=== PATIENT | male | born 1925 | race Caucasian/White ===

== ENCOUNTER 2016-06-20 09:06 | Day surgery (SDC) | payer MEDICARE, OTHER ==
[2006-02-23 18:40] VITALS: BP 107/63
[~2016-06-20] VITALS: Ht 172.7 cm; Wt 103.2 kg
[~2016-06-20 09:06] MED LIST: ACIPHEX20 MG PO; BETAPACE AF120 MG PO; COUMADIN 1MG1 MG/TAB PO; COUMADIN 2MG2 MG/TAB PO; COUMADIN 3MG3 MG/TAB PO; COUMADIN 6MG6 MG/TAB PO; DEPAKOTE500 MG PO; DOXYCYCLINE 10100 MG PO; FENTANYL; FISH OIL CONC1000 MG PO; FLAGYL500 MG PO; FLEXERIL 1010 MG/TAB PO; GLUCOTROL 5M5 MG/TAB PO; K-DUR 2020 MEQ PO; LASIX 40MG TABL40 MG PO; LIPITOR 40MG TA40 MG PO; LIPITOR20 MG PO; LISINOPRIL10 MG PO; LOPID 600M600 MG/TAB PO; LORTAB 5/500 501 TAB PO; NORCO 325 MG-51 TAB PO; OMNICEF 300MG300 MG PO; PACERONE200 MG PO; PERCOCET 325 MG1 TA2 PO; PREDNISONE20 MG PO; PRILOSEC 20MG20 MG PO; RAPAFLO8 MG PO; RYTARY1 CE2 PO; SENOKOT S 50 MG1 TAB PO; STOOL SOFTENER100 M2 PO; SYNTHROID 0.0.025 MG PO; ULTRAM 50MG TAB50 MG PO; UROXATRAL10 M1 PO; VENTOLIN0.09 MG IH; ZITHROMAX 250M250 MG PO; ZOFRAN ODT4 MG PO
[2016-06-20] MEDS ORDERED: SINEMET 25/101 UDTAB PO (09:43)
[2016-06-20 09:48] VITALS: BP 124/55; PULSE 90; TEMP 97.8
[2016-06-20 09:50] LABS: INR 1.4 (0.8-3.0); PROTHROMBIN TIME 16.2 SECONDS (9.7-12.8)
[2016-06-20 11:00] VITALS: BP 111/56; PULSE 71; TEMP 97.4
[2016-06-20 11:15] VITALS: BP 123/80; PULSE 71
[2016-06-20 11:30] VITALS: BP 129/74; PULSE 68
[2016-06-20 12:06] VITALS: BP 114/67; PULSE 70
== END 2016-06-20 11:45 | disposition home or self-care (01) ==
LOC: SDCO 09:06
PROVIDERS: Internal Medicine Pulmonary Disease
DX: R06.02 Shortness of breath (principal); R05 Cough; R91.8 Other nonspecific abnormal finding of lung field; E11.9 Type 2 diabetes mellitus without complications; G47.33 Obstructive sleep apnea (adult) (pediatric); I51.9 Heart disease, unspecified; G47.52 REM sleep behavior disorder; Z79.01 Long term (current) use of anticoagulants; Z79.899 Other long term (current) drug therapy; Z79.84 Long term (current) use of oral hypoglycemic drugs
CPT/HCPCS: J2704; J7120

== ENCOUNTER → 2016-07-29 | Outpatient (CLI) | payer MEDICARE, OTHER ==
[~2016-07-29] MED LIST changes: +ASPIRIN 81M81 MG/TA2 PO; +COLACE 100100 MG/CAP PO; +COMTAN 200MG T200 MG PO; +COUMADIN 5MG5 MG/TAB PO; +FLONASE NASAL S16 GM NS; +SILVADEN TP; +SINEMET 25/101 UDTAB PO; +SINEMET CR 50 M1 TER PO
== END ==
LOC: COL.RAD 12:38
DX: M25.551 Pain in right hip (principal); M16.11 Unilateral primary osteoarthritis, right hip
CPT/HCPCS: J3301; Q9967

== ENCOUNTER 2016-09-23 10:46 | Inpatient (IN) | payer MEDICARE, OTHER ==
[~2016-09-23] VITALS: Ht 172.7 cm; Wt 109.5 kg
[~2016-09-23 10:46] MED LIST changes: -ASPIRIN 81M81 MG/TA2 PO; -COLACE 100100 MG/CAP PO; -COMTAN 200MG T200 MG PO; -COUMADIN 5MG5 MG/TAB PO; -FLONASE NASAL S16 GM NS; -SILVADEN TP; -SINEMET CR 50 M1 TER PO
[2016-09-23] MEDS ORDERED: COLACE 100100 MG/CAP PO (13:54)
[2016-09-23] MEDS ORDERED: FLONASE NASAL S16 GM NS (13:54)
[2016-09-23] MEDS ORDERED: COMTAN 200MG T200 MG PO (13:55)
[2016-09-23 15:52] VITALS: BP 110/51; PULSE 70; TEMP 97.2
[2016-09-24 03:59] VITALS: BP 124/57; PULSE 70; TEMP 97.7
[2016-09-24 12:10] LABS: INR 2.1 (0.8-3.0); PROTHROMBIN TIME 24.2 SECONDS (9.7-12.8)
[2016-09-24 16:40] VITALS: BP 128/68; PULSE 73; TEMP 97.9
[2016-09-25 06:34] VITALS: BP 111/46; PULSE 72; TEMP 97.6
[2016-09-25 09:12] LABS: CREATININE, serum 0.92 mg/dL (0.66-1.25)
[2016-09-25 10:13] LABS: INR 2.4 (0.8-3.0); PROTHROMBIN TIME 27.4 SECONDS (9.7-12.8)
[2016-09-25 17:30] VITALS: BP 109/47; PULSE 67; TEMP 97.7
[2016-09-26 04:58] VITALS: BP 124/58; PULSE 70; TEMP 98
[2016-09-26 07:35] LABS: BASO # 0.1 (0.0-0.2); BASO % 0.9 % (0.0-2.0); EOS # 0.4 (0.0-0.7); EOS % 3.7 % (0-4.0); GRAN # 7.4 (1.4-6.5); GRAN % 77.3 % (42.2-75.2); HEMATOCRIT 45.3 % (42.0-52.0); HEMOGLOBIN 14.2 g/dl (13.5-18.0); MEAN CELL VOLUME 96 fl (80.0-100.0); MEAN CORPUSCULAR HEMOGLOBIN 30 pg (27.0-31.0); MEAN CORPUSCULAR HGB CONC 31 g/dl (33.0-37.0); MEAN PLATELET VOLUME 10.3 fl (7.4-10.4); MONO # 0.7 (0.1-0.6); MONO % 7.3 % (1.7-9.3); PLATELET COUNT 283 K/mm3 (130-400); RED BLOOD COUNT 4.73 M/mm3 (4.20-5.60); WHITE BLOOD COUNT 9.6 K/mm3 (4.8-10.8)
[2016-09-26 07:40] LABS: INR 2.9 (0.8-3.0); PROTHROMBIN TIME 33.5 SECONDS (9.7-12.8)
[2016-09-26 07:43] LABS: ADJUSTED CALCIUM 9.4 mg/dL (8.4-10.2); ALBUMIN 3.4 gm/dL (3.5-5.0); BILIRUBIN,TOTAL 0.8 mg/dL (0.0-1.0); CALCIUM 8.9 mg/dL (8.4-10.2); CREATININE, serum 1.11 mg/dL (0.66-1.25); MAGNESIUM 1.9 mg/dL (1.6-2.3); POTASSIUM 3.9 mmol/L (3.4-5.0); TOTAL PROTEIN 6.8 gm/dL (6.4-8.2)
[2016-09-26 17:41] VITALS: BP 110/54; PULSE 71; TEMP 98.6
[2016-09-27 05:26] VITALS: BP 119/58; PULSE 72; TEMP 98
[2016-09-27 08:32] LABS: INR 3.2 (0.8-3.0); PROTHROMBIN TIME 36.2 SECONDS (9.7-12.8)
[2016-09-27 16:29] VITALS: BP 129/62; PULSE 74; TEMP 97.5
[2016-09-28 05:37] VITALS: BP 118/64; PULSE 73; TEMP 97.5
[2016-09-28 08:04] LABS: INR 3.1 (0.8-3.0); PROTHROMBIN TIME 35.9 SECONDS (9.7-12.8)
[2016-09-28] MEDS ORDERED: SINEMET CR 50 M1 TER PO (13:35)
[2016-09-28 16:18] VITALS: BP 111/46; PULSE 74; TEMP 98.4
[2016-09-29 06:30] VITALS: BP 106/41; PULSE 69; TEMP 98.5
[2016-09-29 07:27] LABS: INR 2.7 (0.8-3.0); PROTHROMBIN TIME 30.4 SECONDS (9.7-12.8)
[2016-09-29 17:21] VITALS: BP 97/39; PULSE 77; TEMP 97.5
[2016-09-29] MEDS ORDERED: ASPIRIN 81M81 MG/TA2 PO (19:40)
[2016-09-30 04:16] VITALS: BP 112/73; PULSE 69; TEMP 97.5
[2016-09-30 08:06] LABS: INR 2.2 (0.8-3.0); PROTHROMBIN TIME 24.5 SECONDS (9.7-12.8)
[2016-09-30 16:27] VITALS: BP 118/53; PULSE 73; TEMP 98
[2016-10-01 03:37] VITALS: BP 123/45; PULSE 63; TEMP 98.5
[2016-10-01 09:09] LABS: PROTHROMBIN TIME 22.2 SECONDS (9.7-12.8)
[2016-10-01 16:20] VITALS: BP 107/55; PULSE 72; TEMP 97.1
[2016-10-02 05:39] VITALS: BP 158/45; PULSE 77; TEMP 97.3
[2016-10-02 09:48] LABS: INR 1.9 (0.8-3.0); PROTHROMBIN TIME 21.7 SECONDS (9.7-12.8)
[2016-10-02 17:41] VITALS: BP 103/44; PULSE 55; TEMP 98.2
[2016-10-03 06:29] VITALS: BP 118/61; PULSE 76; TEMP 97.5
[2016-10-03 09:30] LABS: INR 1.8 (0.8-3.0); PROTHROMBIN TIME 20.1 SECONDS (9.7-12.8)
[2016-10-03 18:08] VITALS: BP 118/51; PULSE 72; TEMP 98.8
[2016-10-04 05:23] VITALS: BP 108/52; PULSE 76; TEMP 97.7
[2016-10-04 12:49] LABS: INR 1.8 (0.8-3.0)
[2016-10-04 16:03] VITALS: BP 121/54; PULSE 72; TEMP 98.8
[2016-10-05 07:52] VITALS: BP 107/49; PULSE 70; TEMP 98.1
[2016-10-05 07:54] LABS: INR 1.7 (0.8-3.0); PROTHROMBIN TIME 19.1 SECONDS (9.7-12.8)
[2016-10-05 17:07] VITALS: BP 138/59; PULSE 86; TEMP 97.7
[2016-10-05] MEDS ORDERED: COUMADIN 5MG5 MG/TAB PO (22:32)
[2016-10-05] MEDS ORDERED: SILVADEN TP (22:54)
[2016-10-06 04:03] VITALS: BP 128/56; PULSE 73; TEMP 97.7
[2016-10-06 08:55] LABS: INR 1.9 (0.8-3.0); PROTHROMBIN TIME 21.4 SECONDS (9.7-12.8)
== END 2016-10-06 18:30 | disposition home or self-care (01) | DRG 948 ==
LOC: COL.ER 10:46
PROVIDERS: Internal Medicine
PROC: 3E0U33Z Introduction of Anti-inflammatory into Joints, Percutaneous Approach (ICD-10-PCS; principal; 2016-09-29)
PROC: 3E0U3BZ Introduction of Anesthetic Agent into Joints, Percutaneous Approach (ICD-10-PCS; 2016-09-29)
DX: R53.81 Other malaise (principal); G20 Parkinson's disease; I48.0 Paroxysmal atrial fibrillation; E11.9 Type 2 diabetes mellitus without complications; I25.10 Atherosclerotic heart disease of native coronary artery without angina pectoris; Z79.01 Long term (current) use of anticoagulants; L89.612 Pressure ulcer of right heel, stage 2; Z91.81 History of falling; M17.11 Unilateral primary osteoarthritis, right knee; K21.9 Gastro-esophageal reflux disease without esophagitis
CPT/HCPCS: 99222-AI; 99232-AI; 99239; A9284; J1815; J3301

== ENCOUNTER → 2016-12-22 | Outpatient (CLI) | payer MEDICARE, OTHER ==
[~2016-12-22] MED LIST changes: +ASPIRIN 81M81 MG/TA2 PO; +COLACE 100100 MG/CAP PO; +COMTAN 200MG T200 MG PO; +COUMADIN 5MG5 MG/TAB PO; +FLONASE NASAL S16 GM NS; +SILVADEN TP; +SINEMET CR 50 M1 TER PO
== END ==
LOC: COL.RAD 13:00
DX: M16.11 Unilateral primary osteoarthritis, right hip (principal)
CPT/HCPCS: J3301; Q9967

== ENCOUNTER → 2017-08-04 | Outpatient (CLI) | payer MEDICARE, OTHER | LOC: COL.RAD 08-03 11:00 | DX: M16.11 Unilateral primary osteoarthritis, right hip (principal) | CPT/HCPCS: J3301; Q9967 ==